=== PATIENT | female | born 1990 | race Caucasian/White ===

== ENCOUNTER → 2021-05-13 | Outpatient (CLI) | payer BC ==
--- NOTE | 2021-05-13 13:54 | RAD ---
XR HAND_RIGHT 3 VIEWS, XR RT WRIST 3VIEWS History: Reason: HAND AND WRIST PAIN, JAMMED THUMB INTO DOOR WEDNESDAY / . Instructions: / History : Technique: 3 views right wrist and 3 views right hand Comparison: None. Findings: Normal limit of the wrist. No acute fracture. Normal alignment hand. No acute fracture. Impression: 1. No acute osseous abnormality. Electronically signed by: Rashaun Zamudio DO (05/13/2021 1:51 PM) [id number]
== END ==
LOC: PMG 13:13
PROVIDERS: ATTEND Nurse Practitioner Family
DX: S69.91XA Unspecified injury of right wrist, hand and finger(s), initial encounter (principal); X58.XXXA Exposure to other specified factors, initial encounter; Y93.89 Activity, other specified; Y92.89 Other specified places as the place of occurrence of the external cause; Y99.8 Other external cause status
CPT/HCPCS: 73110; 73130

== ENCOUNTER 2021-07-13 21:17 | Emergency (ER) | payer BC ==
[~2021-07-13] VITALS: Ht 172.7 cm; Wt 69.6 kg
[2021-07-13] MEDS ORDERED: MVI, ADULT NO.4 WITH VIT K 10 ML, THIAMINE INJ 100 MG in IV NORMAL SALINE 1,000ML 1,000... IV ONE (21:45)
[2021-07-13] MEDS ORDERED: FOLIC ACID 1 MG TABLET PO ONE (21:45)
[2021-07-13] MEDS ORDERED: THIAMINE 200 MG/2 ML VIAL. IV ONE (21:49)
[2021-07-13] MEDS ORDERED: MVI, ADULT NO.4 WITH VIT K 10 ML VIAL IV ONE (21:49)
--- NOTE | 2021-07-13 21:51 | EKG ---
[address] [address] Test Date: 2021-07-13 Test Time: 21:35:03 Pat Name: ROYER YOUNG Department: Room: Gender: F Program Technician: BALTAZAR : 1990 Requested By: SURINDER DE LEON Order Number: [id number] Reading MD: Measurements Intervals [place] Rate: 107 P: 61 MS: 124 QRS: 20 QRSD: 84 T: 15 QT: 362 QTc: 489 Interpretive Statements SINUS TACHYCARDIA LEFT ATRIAL ABNORMALITY INCOMPLETE RIGHT BUNDLE BRANCH BLOCK QRS(T) CONTOUR ABNORMALITY CONSIDER ANTEROSEPTAL MYOCARDIAL DAMAGE ABNORMAL ECG RI6.01 No previous ECG available for comparison
--- NOTE | 2021-07-13 22:07 | PHYS DOC ---
Past History Past Medical History: Anxiety, Depression Past Medical History Limited secondary to intoxication (SURINDER DE LEON DO) Past Surgical History: No Surgical History Past Surgical History Limited secondary to intoxication (SURINDER DE LEON DO) Smoking: Non-smoker Alcohol Use: Heavy Drug Use: Marijuana Social History Limited secondary to intoxication (SURINDER DE LEON DO) General Adult EDM: Chief Complaint: OVERDOSE HPI: HPI: Patient is a 30 year old female who presents with suicidal attempt with overdose. She states that for the last few weeks she has been having worsening depression/anxiety that stems from stress at her job but no acute event. The patient's states that she had been "drinking all day", about half a liter of vodka, and took 8x trazodone that she had left over in an attempt to kill herself. She denies taking any other medications and the removed all medications from the home this morning. found the extra bottle of pills and reports it had been filled with 30 tabs and now only had 22. She denies any vomiting, abdominal pain, nausea or other complaints. Last drink was at 1800 and she took the medications at 2000. She is a daily alcohol drinker but denies any prior hx of delirium tremens or seizures. She has no prior history of suicide attempts and has never been hospitalized in the past. History of present illness limited secondary to intoxication. (SURINDER DE LEON DO) Review of Systems: Review of Systems: Constitutional: Denies fever or chills GI: Denies nausea or vomiting Neurologic: Denies headache, focal weakness or sensory changes Psych: Reports suicidal ideation, denies homicidal ideation Review of systems limited secondary to intoxication (SURINDER DE LEON DO) Current Medications: Current Meds: Current Medications Medications (Trade) Dose Ordered Sig/Harvey Start Time Stop Time Status Last Admin Dose Admin Folic Acid (Folic Acid) 1 mg ONCE ONCE 07/13/21 21:45 07/13/21 21:46 DC 07/13/21 21:53 1 MG Multivitamins/ Minerals (Infuvite Adult) 10 ml STK-MED ONCE 07/13/21 21:49 07/13/21 21:49 DC Multivitamins/ Minerals 10 ml/ Thiamine HCl 100 mg/Sodium Chloride 1,011.3 ml @ 1,000.187 mls/hr 1X ONCE 07/13/21 21:45 07/13/21 22:45 07/13/21 21:54 1,000.187 MLS/HR Thiamine HCl (Thiamine Vial) 200 mg STK-MED ONCE 07/13/21 21:49 07/13/21 21:49 DC (SURINDER DE LEON DO) Allergies: Allergies: Allergies Coded Allergies Type Severity Reaction Last Updated Verified Penicillins Allergy Unknown 07/13/21 Yes (SURINDER DE LEON DO) Physical Exam: PE: Constitutional: Drowsy but arousable to painful stimuli, answering questions appropriately HENT: Normocephalic, atraumatic Eyes: Conjunctiva normal, no discharge, horizontal nystagmus noted Neck: Normal range of motion, supple Lungs & Thorax: No respiratory distress, equal chest rise and fall Cardiovascular: Tachycardia, peripheral pulses equal Abdomen: Soft, no tenderness Skin: Warm, dry, no erythema, no rash Extremities: No tenderness, ROM intact, no edema Neurologic: Somnolent, moving all extremities Psychologic: Positive suicidal ideation (SURINDER DE LEON DO) Current Patient Data: Vital Signs: Vital Signs Date Time Temp Pulse Resp B/P (MAP) Pulse Ox O2 Delivery O2 Flow Rate FiO2 07/13/21 21:26 99.1 108 24 130/85 (100) 94 (SURINDER DE LEON DO) EKG: EKG: @ 2136 Sinus Tachy 107bpm, normal axis, no ST elevation Intervals: [place] 124ms, QRS 84ms, QT 362ms, QTc 489ms (SURINDER DE LEON DO) Heart Score: C/O Chest Pain: N/A (SURINDER DE LEON DO) Course & Med Decision Making: Course & Med Decision Making Pertinent Lab studies reviewed. (See chart for details) Patient presents with history of chronic EtOH abuse with reported overdose of trazodone. Denies history of DTs or withdrawal seizures. Patient somnolent but arousable to painful stimuli. EKG with sinus tachycardia. Labs obtained and posted to chart. EtOH 368. Spoke with poison control and they recommend supportive care at this time with IV fluid hydration. They advised to monitor for bradycardia and to give fluids if she becomes hypotensive. Continue to monitor for 6 hours. Banana bag initiated. PAT evaluation performed with recommendation for inpatient psychiatric services. Plan to recheck alcohol level at 0600. 0600-signout given to Dr. Condra for further evaluation and final disposition. Discussed current findings and plan with patient and family, who acknowledges understanding and agreement. (SURINDER DE LEON DO) Course & Med Decision Making Patient care handed off until placement. Patient alert and oriented no acute distress. Able to take p.o. without issue. Psychiatric assessment team liaison found placement. Patient agreed with plan of transfer and placement. (WASHINGTON SHAW MD) Dragon Disclaimer: Dragon Disclaimer: This electronic medical record was generated, in whole or in part, using a voice recognition dictation system. (SURINDER DE LEON DO) Departure Departure: Impression: Primary Impression: Suicide attempt Additional Impression: Drug overdose Qualified Codes: T50.902A - Poisoning by unspecified drugs, medicaments and biological substances, intentional self-harm, initial encounter Condition: STABLE Referrals: TAMIKO FIGUEROA (PCP) SURINDER DE LEON DO Jul 13, 2021 22:07 WASHINGTON SHAW MD Jul 14, 2021 14:49
[2021-07-13 22:10] LABS: BASO # 0.1 x10^3/uL (0.0-0.2); BASO % 1 % (0-3); EOS # 0.1 x10^3/uL (0.0-0.7); EOS % 1 % (0-3); HEMATOCRIT 43.8 % (36.0-47.0); LYMPH # 2.4 x10^3/uL (1.0-4.8); LYMPH % 43 % (24-48); MEAN CORPUSCULAR HEMOGLOBIN 37 pg (25-35); MEAN CORPUSCULAR HGB CONC 34 g/dL (31-37); MEAN CORPUSCULAR VOLUME 110 fL (79-100); MONO # 0.3 x10^3/uL (0.0-1.1); MONO % 5 % (0-9); NEUT # 2.8 x10^3uL (1.8-7.7); NEUT % 50 % (31-73); PLATELET COUNT 286 x10^3/uL (140-400); RED CELL DISTRIBUTION WIDTH 14.6 % (11.5-14.5); WHITE BLOOD COUNT 5.7 x10^3/uL (4.0-11.0)
[2021-07-13 22:17] LABS: PREG TEST PT QUAL NEGATIVE (NEG)
[2021-07-13 22:21] LABS: CALCIUM 8.8 mg/dL (8.5-10.1); CREATININE 0.8 mg/dL (0.6-1.0); GFR 84.2; POTASSIUM 3.8 mmol/L (3.5-5.1)
[2021-07-13 22:27] LABS: ALBUMIN/GLOBULIN RATIO 1.1 (1.0-1.7); TOTAL BILIRUBIN 0.3 mg/dL (0.2-1.0); TOTAL PROTEIN 7.5 g/dL (6.4-8.2)
[2021-07-13 22:29] LABS: ACETAMIN < 2.0 mcg/mL (10-30); ETHANOL 368 mg/dL (0-10); SALIC 2.4 mg/dL (2.8-20.0)
[2021-07-14 02:30] LABS: BARBITURATES NEG (NEG); BENZODIAZEPINES NEG (NEG); CANNABINOIDS POS (NEG); COCAINE NEG (NEG); METHADONE NEG (NEG); OPIATES NEG (NEG); PHENCYCLIDINE NEG (NEG)
[2021-07-14 02:32] LABS: BACTERIA,URINE 0 /HPF (0-FEW); CLARITY,URINE CLEAR; COLOR,URINE YELLOW; GLUCOSE,URINE NEG (NEG); NITRITE,URINE NEG (NEG); RBC,URINE 0 /HPF (0-2); SQUAMOUS EPITHELIAL CELL,UR OCC /LPF; UROBILINOGEN,URINE 0.2 mg/dL (0.2 mg/dL); WBC,URINE 0 /HPF (0-4)
[2021-07-14 02:33] LABS: AMPHETAMINE/METHAMPHETAMINE NEG (NEG)
[2021-07-14] MEDS ORDERED: IV NORMAL SALINE 1,000ML 1,000 ML IV ONE (04:00)
[2021-07-14] MEDS ORDERED: DEXTROSE 50% 25 GM / 50ML DISP.SYRIN. IV ONE (09:15)
[2021-07-14] MEDS ORDERED: IV RINGERS SOLUTION,LACTATED 1,000 ML IV ONE (09:15)
[2021-07-14 09:41] LABS: CALCIUM 7.3 mg/dL (8.5-10.1); CREATININE 0.9 mg/dL (0.6-1.0); GFR 73.5; MAGNESIUM 1.5 mg/dL (1.8-2.4); POTASSIUM 4.1 mmol/L (3.5-5.1)
--- NOTE | 2021-07-14 09:43 | RAD ---
EXAMINATION: XR CHEST 1V CLINICAL HISTORY: Chest pain, cardiac workup. EXAM DATE/TIME: 07/14/2021 9:06 AM COMPARISON: None FINDINGS: Lines, Tubes, and Devices: None. Cardiomediastinal Silhouette: Within normal limits. Lungs and Pleura: No evidence of focal airspace consolidation or pleural effusion. Mild bibasilar sub segmental atelectasis and/or scarring. Pulmonary vasculature unremarkable. Bones and Soft Tissues: No acute osseous abnormality. IMPRESSION: Mild bibasilar subsegmental atelectasis and/or scarring. Electronically signed by: Josiah Michel DO (07/14/2021 9:41 AM) BORIS
[2021-07-14 14:15] VITALS: BP 138/76
--- NOTE | 2021-07-14 19:42 | EKG ---
[address] [address] Test Date: 2021-07-14 Test Time: 09:18:50 Pat Name: ROYER YOUNG Department: Room: Gender: F Filler Feeder: : 1990 Requested By: WASHINGTON SHAW Order Number: [id number] Reading MD: Giovanny Page MD Measurements Intervals [place] Rate: 116 P: -90 CT: 90 QRS: 20 QRSD: 82 T: 23 QT: 344 QTc: 478 Interpretive Statements SINUS TACHYCARDIA Electronically Signed On 07-22-2021 7:29:43 CDT by Giovanny Page MD
== END 2021-07-14 18:40 ==
LOC: ER 21:17
DX: T43.212A Poisoning by selective serotonin and norepinephrine reuptake inhibitors, intentional self-harm, initial encounter (principal); R45.851 Suicidal ideations; F41.9 Anxiety disorder, unspecified; F32.9 Major depressive disorder, single episode, unspecified; F10.20 Alcohol dependence, uncomplicated; Z20.822 Contact with and (suspected) exposure to COVID-19; Z88.0 Allergy status to penicillin; Y90.8 Blood alcohol level of 240 mg/100 ml or more; Y92.89 Other specified places as the place of occurrence of the external cause
CPT/HCPCS: 36415; 80048; 80053; 80307; 80329; 81001; 82947; 83735; 84484; 84703; 85025; 85610; 85730; 87426; 93005; 96361; 96365; 96366; 96375; 96376; 99285; G0480; J7030; U0003